=== PATIENT | female | born 1940 | race Caucasian/White ===

== ENCOUNTER → 2016-08-16 | Outpatient (CLI) | payer MEDICARE, OTHER ==
--- NOTE | 2016-08-17 10:04 | MAM ---
History: Well woman exam. Date of exam: 08/16/2016 Services provided: Bilateral full field digital screening mammography. CAD, the images were reviewed with R2 computer aided detection. FINDINGS: Glandular tissue is scattered glandular parenchymal pattern with nodularity and increased mammographic density. Study is compared with 2013 exam. No dominant mass, architectural distortion or clustered microcalcification. IMPRESSION: Benign exam Recommendation: Routine annual mammography BIRAD CATEGORY: 2 BENIGN Electronically signed by: Zuleyka Suazo MD 08/17/2016 10:03 AM CDT Workstation: [id number]
== END | disposition home or self-care (01) ==
LOC: MAMMO 09:54
PROVIDERS: ATTEND Obstetrics & Gynecology
DX: Z12.31 Encounter for screening mammogram for malignant neoplasm of breast (principal)

== ENCOUNTER → 2017-01-08 | Outpatient (CLI) | payer MEDICARE, OTHER | END | disposition home or self-care (01) | LOC: GMAH 10:47 | PROVIDERS: ATTEND Family Medicine | DX: E78.2 Mixed hyperlipidemia (principal) ==

== ENCOUNTER → 2018-01-30 | Outpatient (CLI) | payer OTHER | LOC: GMAH 10:39 | PROVIDERS: ATTEND Family Medicine | DX: I10 Essential (primary) hypertension (principal); E78.2 Mixed hyperlipidemia ==

== ENCOUNTER 2018-08-10 21:51 | Emergency (ER) | payer MEDICARE, OTHER ==
[2018-08-10 22:10] VITALS: O2SAT 96
--- NOTE | 2018-08-10 22:54 | ED.PDOC ---
History of Present Illness - General Chief Complaint: General Stated Complaint: dizziness Time Seen by Provider: 08/10/18 22:40 Source: patient Exam Limitations: no limitations - History of Present Illness Initial Comments: James Potter 78 y/o female stated that she had attacks of vertigo yesterday followed later by nausea/vomiting several times started yesterday also stated head still feels heavy.Had history of Vertigo on and off for the last 7 years and had neuroimaging studies in the past stating did not find any abnormalities.Denies chest pains,blurry vision, slurred speech,weakness on extremities.Ate soup tonight but threw it back up. Timing/Duration: changing over time, intermittent, other - 36 hours Severity: moderate Improving Factors: nothing Worsening Factors: nothing Associated Symptoms: denies symptoms Allergies/Adverse Reactions: Allergies Codeine Allergy (Verified 09/18/15 12:56) Other Causes chest pain Penicillins Allergy (Verified 09/18/15 12:56) Other Causes swelling and difficulty breathing Home Medications: Ambulatory Orders Aspirin [Aspirin Childrens] 81 mg PO DAILY 07/08/14 Calcium Carbonate-Cholecalcife [Caltrate 600+D 600-400 mg-Unit] 1 chw PO DAILY 07/08/14 Meclizine HCl 25 mg PO TID 07/08/14 Metoprolol Succinate [Metoprolol Succinate ER] 25 mg PO DAILY 07/08/14 Multiple Vitamins W/ Minerals [Centrum Silver] 1 tab PO DAILY 07/08/14 Pravastatin Sodium [Pravachol] 40 mg PO DAILY 07/08/14 Triamterene & Hydrochlorothiaz [Triamterene/Hydrochloroth 37.5-25 mg] 0.5 tab PO DAILY 07/08/14 Review of Systems - Review of Systems Constitutional: States: no symptoms reported EENTM: States: no symptoms reported Respiratory: States: no symptoms reported Cardiology: States: no symptoms reported Gastrointestinal/Abdominal: States: no symptoms reported, abdominal pain Musculoskeletal: States: no symptoms reported Skin: States: no symptoms reported Neurological: States: see HPI, other - dizziness Past Medical History (General) - Patient Medical History Hx Seizures: No Hx Stroke: No Hx Dementia: No Hx Asthma: No Hx of COPD: No Hx Cardiac Disorders: No Hx Congestive Heart Failure: No Hx Pacemaker: No Hx Hypertension: Yes Hx Thyroid Disease: No Hx Diabetes: No Hx Gastroesophageal Reflux: No Hx Renal Disease: No Hx Cancer: No Hx of HIV: No Hx Hepatitis C: No Hx MRSA: No Surgical History: cholecystectomy, other - hysterectomy - Vaccination History Hx Tetanus, Diphtheria Vaccination: No Hx Influenza Vaccination: Yes - 2014 Hx Pneumococcal Vaccination: Yes Immunizations Up to Date: Yes - Social History Hx Tobacco Use: No Hx Chewing Tobacco Use: No Hx Alcohol Use: No Hx Substance Use: No Hx Substance Use Treatment: No Hx Depression: No Feels Threatened In Home Enviroment: No Feels Threatened In a Relationship: No Hx Physical Abuse: No Hx Emotional Abuse: No Hx Suspected Abuse: No - Activities of Daily Living Hospice Agency (if applicable):: None - Female History Patient is a Female of Child Bearing Age (10 -59 yrs old): No Family Medical History - Family History Father Family History: No Known Living Status: Cause of : [place] Hx Family Diabetes: Yes - brother Physical Exam - Physical Exam General Appearance: Alert, Comfortable, No apparent distress Eye Exam: bilateral normal Ears, Nose, Throat: hearing grossly normal, normal ENT inspection, normal pharynx Neck: non-tender, full range of motion, supple, normal inspection Respiratory: chest non-tender, lungs clear, normal breath sounds, no respiratory distress Cardiovascular/Chest: normal peripheral pulses, regular rate, rhythm, no murmur Peripheral Pulses: radial,right: 2+, radial,left: 2+ Gastrointestinal/Abdominal: normal bowel sounds, non tender, soft, no organomegaly Back Exam: no CVA tenderness, no vertebral tenderness Extremity: non-tender, no pedal edema, no calf tenderness Neurologic: alert, oriented x 3, other - speech fluent;speaks in full sentences Skin Exam: normal color, warm/dry Progress - Progress Progress: 08/10/18 22:59 Vital Signs - 8 hr 08/10/18 21:55 Temperature 96.7 F L Pulse Rate [ 65 pulse ox] Respiratory 20 Rate Blood Pressure 167/78 [Left Arm] O2 Sat by Pulse 96 Oximetry 08/11/18 00:16 Manvel better on discharge;Discuss all test results with patient - Results/Orders Results/Orders: 08/10/18 22:06 EKG Assessment ONCE 08/10/18 22:15 EKG STAT 08/10/18 23:00 IV Care:Saline Lock per Protoc QSHIFT URINALYSIS Stat 08/11/18 00:15 Pantoprazole Tablet [Protonix] 40 mg PO ONCE ONE Laboratory Results - last 24 hr 08/10/18 23:00 WBC 8.3 RBC 4.44 Hgb 13.3 Hct 39.0 MCV 87.8 MCH 30.0 MCHC 34.1 RDW 13.2 Plt Count 284 MPV 7.9 Absolute Neuts (auto) 7.20 H Absolute Lymphs (auto) 0.70 L Absolute Monos (auto) 0.30 Absolute Eos (auto) 0.00 Absolute Basos (auto) 0.10 Neutrophils % 87.0 H Lymphocytes % 8.8 L Monocytes % 3.4 Eosinophils % 0.2 L Basophils % 0.6 PT 10.4 INR 1.04 PTT (SP) 23.1 Sodium 133 L Potassium 3.4 L Chloride 99 L Carbon Dioxide 24 Anion Gap 13.4 BUN 12 Creatinine 0.55 L BUN/Creatinine Ratio 21.8 H Random Glucose 132 H Serum Osmolality 268.0 L Calcium 9.2 Magnesium 1.8 Total Bilirubin 0.7 Direct Bilirubin 0.1 Indirect Bilirubin 0.6 AST 19 ALT 15 Alkaline Phosphatase 80 Creatine Kinase 54 CK-MB (CK-2) 1.0 CK-MB (CK-2) % Not Reportable Troponin I < 0.02 Serum Total Protein 7.2 Albumin 3.9 Lipase 23 - EKG/XRAY/CT XRAY: chest - and abdomen-no acute abnormalities noted CT Ordered: Yes - no acute intracranial abnormalities Departure - Departure Clinical Impression: Dizziness Nausea and vomiting Qualifiers: Vomiting type: unspecified Vomiting Intractability: non-intractable Qualified Code(s): R11.2 - Nausea with vomiting, unspecified Time of Disposition: 00:17 Disposition: Discharge to Home or Self Care Condition: Fair Departure Forms: ED Discharge - Pt. Copy, Patient Portal Self Enrollment Referrals: Dago hWeat MD [Primary Care Provider] - 1-2 Weeks Home Medications: Ambulatory Orders Aspirin [Aspirin Childrens] 81 mg PO DAILY 07/08/14 Calcium Carbonate-Cholecalcife [Caltrate 600+D 600-400 mg-Unit] 1 chw PO DAILY 07/08/14 Meclizine HCl 25 mg PO TID 07/08/14 Metoprolol Succinate [Metoprolol Succinate ER] 25 mg PO DAILY 07/08/14 Multiple Vitamins W/ Minerals [Centrum Silver] 1 tab PO DAILY 07/08/14 Pravastatin Sodium [Pravachol] 40 mg PO DAILY 07/08/14 Triamterene & Hydrochlorothiaz [Triamterene/Hydrochloroth 37.5-25 mg] 0.5 tab PO DAILY 07/08/14 Additional Instructions: Continue with all home medications;Return to Emergency room as needed
[2018-08-10] MEDS ORDERED: PROCHLORPERAZINE INJ 10 MG/2 ML VIAL IV ONE (23:00)
[2018-08-10] MEDS ORDERED: ALPRAZolam 0.25 MG TAB PO ONE (23:00)
[2018-08-10] MEDS ORDERED: DEXAMETHASONE INJ 4 MG/ML VIAL IV ONE (23:00)
--- NOTE | 2018-08-10 23:38 | RAD ---
EXAM DESCRIPTION: Chest,1 View CLINICAL HISTORY: 78 years Female cough COMPARISON: 09/18/2015 FINDINGS: The cardiomediastinal silhouette appears unremarkable. No consolidating infiltrates or pleural effusions. No pneumothorax. IMPRESSION: No acute abnormality is identified. Electronically signed by: Jacki Duarte MD 08/10/2018 11:36 PM CDT
--- NOTE | 2018-08-10 23:42 | CT ---
PROCEDURE: Head CLINICAL HISTORY: 78 years Female dizziness/headache/N/V COMPARISON: None. TECHNIQUE: Contiguous axial CT images obtained through the brain without IV contrast. This exam was performed according to our department optimization program which includes automated exposure control, adjustment of the mA and/or kv according to patient size and/or use of iterative reconstruction technique. FINDINGS: The ventricles and sulci are prominent consistent with atrophic changes. No mass lesions. Old lacunar infarct in the right basal ganglia. No acute hemorrhage. Atherosclerotic calcifications. No fluid or significant mucosal thickening in the visualized paranasal sinuses. No depressed calvarial fractures. IMPRESSION: No acute intracranial abnormality is identified. Electronically signed by: Jacki Duarte MD 08/10/2018 11:40 PM CDT
--- NOTE | 2018-08-10 23:42 | RAD ---
EXAM DESCRIPTION: Abdomen 1 View CLINICAL HISTORY: 78 years Female ,cough COMPARISON: None. TECHNIQUE: Single view of the abdomen was provided.. FINDINGS:Upper abdomen incompletely included on the image. No dilated loops of bowel to suggest obstruction. No abnormal calcifications noted. IMPRESSION: No acute plain film abnormality is identified. Electronically signed by: Jacki Duarte MD 08/10/2018 11:40 PM CDT
[2018-08-11] MEDS ORDERED: PANTOPRAZOLE SODIUM TAB 40 MG PO ONE (00:15)
[2018-08-11] MEDS ORDERED: ONDANSETRON ODT (ER DISP) 8 MG TAB PO ONE ×2 (00:17→00:22)
[2018-08-11 00:37] VITALS: BP 125/59; TEMP 97.7
== END 2018-08-11 00:35 | disposition home or self-care (01) ==
LOC: ER 21:51
DX: R42 Dizziness and giddiness (principal); R11.2 Nausea with vomiting, unspecified; I10 Essential (primary) hypertension; Z79.899 Other long term (current) drug therapy; Z79.82 Long term (current) use of aspirin
CPT/HCPCS: 70450; 71045; 74018; 80048; 80076; 82550; 82553; 83690; 84484; 85025; 85610; 85730; 93005; J0780; J1100

== ENCOUNTER 2019-01-31 17:02 | Emergency (ER) | payer MEDICARE ==
[2019-01-31] MEDS ORDERED: SODIUM CHLORIDE 0.9% 1000ML 1,000 ML IVS ONE (18:13)
[2019-01-31] MEDS ORDERED: PROMETHAZINE HCL INJ 25 MG in SODIUM CHLORIDE 0.9% 50ML 50 ML IVPB ONE (18:13)
[2019-01-31 18:42] VITALS: TEMP 98.5
[2019-01-31] MEDS ORDERED: SODIUM CHLORIDE 0.9% 50ML 50 ML ONE (18:51)
[2019-01-31] MEDS ORDERED: PROMETHAZINE HCL INJ 25 MG/ML VIAL ONE (18:51)
[2019-01-31] MEDS ORDERED: GABAPENTIN 300 MG CAP PO ONE (19:44)
[2019-01-31 20:04] VITALS: BP 149/79; O2SAT 95
--- NOTE | 2019-01-31 20:23 | ED.PDOC ---
History of Present Illness - General Chief Complaint: General Stated Complaint: Dizzy and Nausea Time Seen by Provider: 01/31/19 18:12 Source: patient Exam Limitations: no limitations - History of Present Illness Initial Comments: the patient is a 79-year-old female presenting to the emergency room secondary to a recurrent episode of vertigo with associated nausea and vomiting. She had an episode earlier in the week. No fevers, chills. No sore throat. No syncope. No other neurological changes. Given the patient's history of hearing loss and tinnitus, she most likely has Mnire's disease. Timing/Duration: unsure Severity: moderate Improving Factors: nothing Worsening Factors: movement Associated Symptoms: nausea/vomiting Allergies/Adverse Reactions: Allergies Codeine Allergy (Verified 01/31/19 18:42) Other Causes chest pain Penicillins Allergy (Verified 01/31/19 18:42) Other Causes swelling and difficulty breathing Home Medications: Ambulatory Orders Aspirin [Aspirin Childrens] 81 mg PO DAILY 07/08/14 Calcium Carbonate-Cholecalcife [Caltrate 600+D 600-400 mg-Unit] 1 chw PO DAILY 07/08/14 Meclizine HCl 25 mg PO TID 07/08/14 Metoprolol Succinate [Metoprolol Succinate ER] 25 mg PO DAILY 07/08/14 Multiple Vitamins W/ Minerals [Centrum Silver] 1 tab PO DAILY 07/08/14 Pravastatin Sodium [Pravachol] 40 mg PO DAILY 07/08/14 Triamterene & Hydrochlorothiaz [Triamterene/Hydrochloroth 37.5-25 mg] 0.5 tab PO DAILY 07/08/14 Ondansetron Odt [Zofran ODT] 4 mg PO Q8HR PRN #5 tab 01/31/19 predniSONE [Prednisone] 20 mg PO DAILY #3 tab 01/31/19 Review of Systems - Review of Systems Constitutional: States: malaise EENTM: States: no symptoms reported Respiratory: States: no symptoms reported Cardiology: States: no symptoms reported Gastrointestinal/Abdominal: States: nausea, vomiting Genitourinary: States: no symptoms reported Musculoskeletal: States: no symptoms reported Skin: States: no symptoms reported Neurological: States: other - vertigo Endocrine: States: no symptoms reported All other Systems: No Change from Baseline Past Medical History (General) - Patient Medical History Hx Seizures: No Hx Stroke: No Hx Dementia: No Hx Asthma: No Hx of COPD: No Hx Cardiac Disorders: No Hx Congestive Heart Failure: No Hx Pacemaker: No Hx Hypertension: Yes Hx Thyroid Disease: No Hx Diabetes: No Hx Gastroesophageal Reflux: No Hx Renal Disease: No Hx Cancer: No Hx of HIV: No Hx Hepatitis C: No Hx MRSA: No Surgical History: appendectomy, cholecystectomy, Hysterectomy - Vaccination History Hx Tetanus, Diphtheria Vaccination: No Hx Influenza Vaccination: Yes Hx Pneumococcal Vaccination: Yes - Social History Hx Tobacco Use: No Hx Chewing Tobacco Use: No Hx Alcohol Use: No Hx Substance Use: No Hx Substance Use Treatment: No Hx Depression: No Hx Physical Abuse: No Hx Emotional Abuse: No Hx Suspected Abuse: No - Female History Patient is a Female of Child Bearing Age (10 -59 yrs old): No Patient : No Family Medical History - Family History Father Family History: No Known Living Status: Cause of : [place] Hx Family Diabetes: Yes - brother Physical Exam - Physical Exam General Appearance: Alert, Ill Appearing Eye Exam: bilateral normal - no obvious abnormal nystagmus. Ears, Nose, Throat: hearing grossly normal, normal ENT inspection Neck: full range of motion, supple Respiratory: lungs clear, normal breath sounds, no respiratory distress, no accessory muscle use Cardiovascular/Chest: normal peripheral pulses, regular rate, rhythm, no edema Peripheral Pulses: radial,right: 2+, radial,left: 2+ Gastrointestinal/Abdominal: non tender, soft Rectal Exam: deferred Back Exam: no CVA tenderness, no vertebral tenderness Extremity: normal range of motion, non-tender, normal inspection, no pedal edema, normal capillary refill Neurologic: locker attendant II-XII nml as tested, alert, normal mood/affect, oriented x 3, other - HINTs exam fails to demostrate obvious defect, maybe lateralize more to the left Skin Exam: normal color Comments: Vital Signs - 24 hr 01/31/19 01/31/19 01/31/19 18:30 18:35 19:00 Temperature 98.5 F Pulse Rate [ 59 L 59 L 96 H Apical] Respiratory 16 16 16 Rate Blood Pressure 166/86 168/84 [R brachial] O2 Sat by Pulse 97 97 Oximetry 01/31/19 20:00 Temperature Pulse Rate [ 61 Apical] Respiratory 16 Rate Blood Pressure 149/79 [R brachial] O2 Sat by Pulse 95 Oximetry Progress - Progress Progress: 01/31/19 20:26 the patient is a 79-year-old female presenting to the emergency room secondary to an episode of recurrent vertigo with nausea and vomiting. This appears to be most likely related to Mnire's disease. The patient received a liter of IV fluids and some IV Phenergan here. This did improve her symptoms however the patient appears to have had a mild excitory reaction to the Phenergan. it seems to have flared her restlessness and restless legs. She did receive 1 dose of Neurontin. The patient can follow-up with her primary care doctor in the coming weeks. She may benefit from an evaluation by ENT. She may also benefit from a balance training course as these episodes will likely recur. I'm going to write her for 3 days of oral prednisone only. She already has the meclizine. She'll be written for Zofran for nausea and vomiting as needed. ER warnings were given. mariposa benton [phone] - Results/Orders Results/Orders: 01/31/19 18:13 EKG sinus bradycardia at 58 bpm normal axis. Normal R-wave progression. No definitive ST segment or T-wave changes indicative of acute ischemia. Normal QT interval. Laboratory Results - last 24 hr 01/31/19 01/31/19 01/31/19 18:30 18:30 18:30 WBC 9.7 RBC 4.72 Hgb 14.0 Hct 42.1 MCV 89.1 MCH 29.6 MCHC 33.2 RDW 13.6 Plt Count 314 MPV 7.9 Absolute Neuts (auto) 7.50 H Absolute Lymphs (auto) 1.20 Absolute Monos (auto) 0.80 Absolute Eos (auto) 0.10 Absolute Basos (auto) 0.00 Neutrophils % 77.2 Lymphocytes % 12.5 L Monocytes % 8.3 Eosinophils % 1.5 Basophils % 0.5 Sodium 137 Potassium 3.9 Chloride 100 L Carbon Dioxide 30 Anion Gap 10.9 L BUN 12 Creatinine 0.61 BUN/Creatinine Ratio 19.7 Random Glucose 111 H Serum Osmolality 274.3 L Calcium 9.3 Magnesium 2.0 Total Bilirubin 0.4 AST 22 ALT 18 Alkaline Phosphatase 70 Creatine Kinase 51 CK-MB (CK-2) 1.8 CK-MB (CK-2) % Not Reportable Troponin I < 0.02 Serum Total Protein 6.8 Albumin 4.0 Globulin 2.8 Albumin/Globulin Ratio 1.4 Amylase 37 Lipase 39 rapid flu is negative. Departure - Departure Clinical Impression: Vertigo Menieres disease Qualifiers: Laterality: bilateral Qualified Code(s): H81.03 - Meniere's disease, bilateral Disposition: Discharge to Home or Self Care Condition: Fair Departure Forms: ED Discharge - Pt. Copy, Patient Portal Self Enrollment Instructions: Meniere Disease, Vertigo (a Type of Dizziness) (DC) Diet: low salt diet Activity: increase activity as tolerated Referrals: Sidney Hinojosa MD [Primary Care Provider] - 1-2 Weeks Prescriptions: Ondansetron Odt [Zofran ODT] 4 mg PO Q8HR PRN #5 tab PRN Reason: Nausea--Moderate predniSONE [Prednisone] 20 mg PO DAILY #3 tab Home Medications: Ambulatory Orders Aspirin [Aspirin Childrens] 81 mg PO DAILY 07/08/14 Calcium Carbonate-Cholecalcife [Caltrate 600+D 600-400 mg-Unit] 1 chw PO DAILY 07/08/14 Meclizine HCl 25 mg PO TID 07/08/14 Metoprolol Succinate [Metoprolol Succinate ER] 25 mg PO DAILY 07/08/14 Multiple Vitamins W/ Minerals [Centrum Silver] 1 tab PO DAILY 07/08/14 Pravastatin Sodium [Pravachol] 40 mg PO DAILY 07/08/14 Triamterene & Hydrochlorothiaz [Triamterene/Hydrochloroth 37.5-25 mg] 0.5 tab PO DAILY 07/08/14 Ondansetron Odt [Zofran ODT] 4 mg PO Q8HR PRN #5 tab 01/31/19 predniSONE [Prednisone] 20 mg PO DAILY #3 tab 01/31/19 Additional Instructions: the patient is a 79-year-old female presenting to the emergency room secondary to an episode of recurrent vertigo with nausea and vomiting. This appears to be most likely related to Mnire's disease. The patient received a liter of IV fluids and some IV Phenergan here. This did improve her symptoms. The patient can follow-up with her primary care doctor in the coming weeks. She may benefit from an evaluation by ENT. She may also benefit from a balance training course as these episodes will likely recur. I'm going to write her for 3 days of oral prednisone only. She already has the meclizine. She'll be written for Zofran for nausea and vomiting as needed. ER warnings were given.
== END 2019-01-31 20:44 | disposition home or self-care (01) ==
LOC: ER 17:02
DX: H81.03 Meniere's disease, bilateral (principal); I10 Essential (primary) hypertension; Z79.899 Other long term (current) drug therapy; Z79.82 Long term (current) use of aspirin; Z88.5 Allergy status to narcotic agent; Z88.0 Allergy status to penicillin
CPT/HCPCS: 36415; 80053; 82150; 82550; 82553; 83690; 83735; 84484; 85025; 87502; 93005; A4216; J2550; J7030

== ENCOUNTER → 2019-02-06 | Outpatient (CLI) | payer MEDICARE | LOC: GMA MATASK 10:32 | PROVIDERS: ATTEND Family Medicine | DX: I10 Essential (primary) hypertension (principal) ==

== ENCOUNTER → 2019-04-17 | Outpatient (CLI) | payer MEDICARE ==
--- NOTE | 2019-04-17 14:07 | RAD ---
4 radiographs left knee Indication: KNEE PAIN Comparison: None Impression: Severe osteoarthritis medial knee compartment with moderate changes lateral compartment and patellofemoral compartment. Chondrocalcinosis of the menisci. 15 mm ossified loose body along the posteromedial margin of the medial tibial metaphysis, likely within a Torres's cyst. Moderate size knee effusion. MRI can better evaluate as clinically indicated. No acute fracture identified. Electronically signed by: Samson Colon MD 04/17/2019 2:05 PM [facility]
--- NOTE | 2019-04-17 14:08 | RAD ---
EXAM DESCRIPTION: Pelvis CLINICAL HISTORY: 79 years Female, HIP PAIN COMPARISON: None. Findings: One views/radiographs Partial bilateral sacroiliac joint fusion. Degenerative changes in the visualized spine are in osteopenia. Pelvic phleboliths. Mild bilateral hip osteoarthritis with acetabular over coverage. No acute fracture or dislocation. IMPRESSION: Chronic findings. No evidence of acute osseous abnormality. Electronically signed by: Jarad Pelayo MD 04/17/2019 2:07 PM [facility]
== END ==
LOC: RAD 08:56
PROVIDERS: ATTEND Orthopaedic Surgery
DX: M17.12 Unilateral primary osteoarthritis, left knee (principal); M23.42 Loose body in knee, left knee; M94.262 Chondromalacia, left knee; M25.462 Effusion, left knee; M16.6 Other bilateral secondary osteoarthritis of hip; M43.28 Fusion of spine, sacral and sacrococcygeal region; M85.88 Other specified disorders of bone density and structure, other site; I87.8 Other specified disorders of veins

== ENCOUNTER → 2020-01-05 | Outpatient (CLI) | payer MEDICARE ==
--- NOTE | 2020-01-07 15:33 | MAM ---
EXAM DESCRIPTION: 3D Screening BILATERAL : Digital Mammography. CLINICAL HISTORY: 79 years Female screening . No complaints. No personal or family history of breast cancer. Menarche age 11. Childbirth age 22. Menopause age 42. HRT 5 or more years ago.. Lifetime risk of developing breast cancer (Tyrer-Cuzick model)(%): 3.5. COMPARISON: Bilateral screening digital breast tomosynthesis September 2017 and bilateral screening digital breast 2-D imaging July 2016. TECHNIQUE: Bilateral CC and MLO projection full-field images, digital tomosynthesis mammographic technique. Bilateral digital 2-D full-field MLO images. CAD available for 2-D images. FINDINGS: The breast parenchymal density pattern is: Heterogeneously dense breast tissue, which may obscure small masses. No skin thickening or nipple retraction. Axillary nodes. Solitary microcalcifications. No new focal, stellate mass or density, focal asymmetry , and no suspicious microcalcifications bilaterally. Stable mammograms compared to prior study. IMPRESSION: Benign exam. BIRAD CATEGORY: 2 BENIGN FINDINGS. RECOMMENDATIONS: FOLLOW UP: Routine digital bilateral mammographic screening, one year interval from December 2019. Written communication explaining the IMPRESSION and follow-up, will be mailed to the patient and referring health care provider. According to the [employer], yearly mammograms are recommended starting at age 40 and continuing as long as a woman is in good health. Any breast change noted on a breast self-exam should be reported promptly to the patient's healthcare provider. Breast MRI is recommended for women with an approximately 20-25% or greater lifetime risk of breast cancer, including women with a strong family history of breast or ovarian cancer and women who have been treated for Hodgkin's disease. A negative mammographic report should not delay tissue diagnosis in patients with significant clinical history or physical findings. Extremely dense breast tissue limits the sensitivity of digital mammography. Electronically signed by: Jordan Yee MD 01/07/2020 3:31 PM [employer]
== END ==
LOC: MAMMO 11:30
PROVIDERS: ATTEND Family Medicine
DX: Z12.31 Encounter for screening mammogram for malignant neoplasm of breast (principal)